=== PATIENT | female | born 1985 | race Native Hawaiian/Other Pacific Islander ===

== ENCOUNTER 2017-08-04 09:48 | Outpatient (CLI) | payer OTHER | END 2017-08-04 10:02 | disposition short-term general hospital (02) | LOC: AMB 09:48 | DX: K08.89 Other specified disorders of teeth and supporting structures (principal) | CPT/HCPCS: A0425; A0429 ==

== ENCOUNTER 2017-08-04 10:07 | Emergency (ER) | payer OTHER ==
[~2017-08-04] VITALS: Ht 162.6 cm; Wt 181.4 kg
[2017-08-04 10:10] VITALS: BP 140/96; TEMP 98.6
== END 2017-08-04 10:30 | disposition home or self-care (01) ==
LOC: ED 10:07
DX: R22.0 Localized swelling, mass and lump, head (principal); K02.9 Dental caries, unspecified
CPT/HCPCS: 99281